=== PATIENT | female | born 1960 | race African-American/Black ===

== ENCOUNTER 2019-06-30 16:53 | Emergency (ER) | payer OTHER, MEDICAID ==
[~2019-06-30] VITALS: Ht 170.2 cm; Wt 77.0 kg
[2019-06-30 19:00] VITALS: BP 154/102
== END 2019-06-30 21:21 | disposition left against medical advice (07) ==
LOC: ER 16:53
DX: S01.112A Laceration without foreign body of left eyelid and periocular area, initial encounter (principal); S69.90XA Unspecified injury of unspecified wrist, hand and finger(s), initial encounter; Z53.21 Procedure and treatment not carried out due to patient leaving prior to being seen by health care provider; X58.XXXA Exposure to other specified factors, initial encounter; Y93.89 Activity, other specified; Y92.89 Other specified places as the place of occurrence of the external cause; Y99.8 Other external cause status